=== PATIENT | female | born 1980 | race Two or more races ===

== ENCOUNTER → 2024-05-11 | Outpatient (CLI) | payer MEDICAID, SELFPAY ==
--- NOTE | 2024-05-11 10:45 | XR_ITS ---
Examination: Breast ultrasound, unilateral, left complete Date and time of exam: May 11, 2024 1118 hours INDICATIONS: Palpable mass left breast with pain 5:00 position beginning one week ago Technique: Real-time ho scale ultrasonographic imaging performed left breast including all 4 quadrants as well as nipple retroareolar and axillary region. Findings: 1:00 cyst 4 x 6 mm, no solid nodules IMPRESSION: BI-RADS Category 0: Incomplete: Need additional imaging evaluation Recommend diagnostic mammography follow-up
== END | disposition home or self-care (01) ==
LOC: CDIM 10:55
PROVIDERS: PCP Registered Nurse Community Health; Referring Provider Registered Nurse Community Health; Visit Provider Registered Nurse Community Health
DX: R92.8 Other abnormal and inconclusive findings on diagnostic imaging of breast (principal)
CPT/HCPCS: 76641

== ENCOUNTER → 2024-06-29 | Outpatient (CLI) | payer MEDICAID, SELFPAY ==
--- NOTE | 2024-06-29 11:15 | XR_ITS ---
Examination: Diagnostic digital mammography, unilateral, LEFT Computer aided detection 3-D breast Tomosynthesis, unilateral Date and time of exam: June 29, 2019 5:11 AM INDICATIONS: Patient states intermittent left breast pain beginning 4 months ago Technique: Nonmagnified MLO, CC views of the left breast have been obtained, reconstructed from 3-D Tomosynthesis images. R2 computer aided detection program utilized for evaluation of suspicious masses and/or abnormal calcifications. 3-D Tomosynthesis images obtained. Findings: Scattered areas of fibroglandular density Benign calcifications. No suspicious masses Impression: BI-RADS category 2: Benign findings Return to yearly follow-up mammography Recommend continued repeat left breast sonography in 3-6 months if left breast pain persists
== END | disposition home or self-care (01) ==
LOC: CDIM 10:57
PROVIDERS: Referring Provider Registered Nurse Community Health; Visit Provider Registered Nurse Community Health
DX: R92.322 Mammographic fibroglandular density, left breast (principal); R92.1 Mammographic calcification found on diagnostic imaging of breast
CPT/HCPCS: 77061; 77065; G0279